=== PATIENT | male | born 1945 | race Caucasian/White ===

== ENCOUNTER 2025-02-06 09:44 | Emergency (ER) | payer MEDICARE, OTHER, SELFPAY ==
[2025-02-06 09:44] VITALS: BMI 22.2
[2025-02-06 09:48] VITALS: BP 165/88
[2025-02-06 10:04] LABS: Hematocrit 43.6 % (39.0-52.0); Hemoglobin 15.5 g/dL (13.0-18.0); Mean Corp Hgb Conc. 35.6 g/dL (33.0-37.0); Mean Corpuscular Volume 96.7 fL (80.0-94.0); Nucleated Red Blood Cells % 0 % (-); Platelet Count 139 10^3/uL (130-400); Red Cell Dist. Width 12.6 % (11.5-14.5)
[2025-02-06 10:26] LABS: Troponin I 0.014 ng/ml
[2025-02-06 10:27] LABS: ALT (SGPT) 28 U/L (0-50); AST (SGOT) 31 U/L (17-59); Albumin 5.0 g/dl (3.5-5.0); Alkaline Phosphatase 66 U/L (38-126); Blood Urea Nitrogen 13 mg/dl (9-20); Calcium 10.0 mg/dl (8.4-10.2); Carbon Dioxide 25 mmol/L (22-30); Chloride 103 mmol/L (98-107); Glucose 106 mg/dl (70-99); Potassium 4.5 mmol/L (3.5-5.1); Sodium 136 mmol/L (135-145); Total Protein 7.7 g/dl (6.3-8.2); eGFR > 60.00
[2025-02-06 15:22] VITALS: BP 153/68
--- NOTE | 2025-02-06 15:56 | ED.GENMED ---
History of Present Illness
General
Chief Complaint: Chest Pain
Time Seen by Provider: 02/06/25 15:30
Nursing documentation reviewed up to this point in time: agreed with
History of Present Illness
History of Present Illness:
80-year-old male presents to the ER with his for evaluation of a multitude of complaints. 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 He states that this
pain has been going on for the last several days. 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 He also feels tingling and burning discomfort up into his neck and face, which he has experienced before of uncertain significance.
He does see pain management and is prescribed tramadol twice daily. He reports that he stopped taking this 5 days ago as he felt that in general it had not been helping any of his discomforts. He denies any cough or cold symptoms. No dyspnea. No
fevers. No abdominal pain. reports that he has not had much of an appetite in the past few days. Patient also reports urinary frequency and urgency along with nocturia, but states that this has been ongoing for the last several months and he
has already spoken to his urologist about it-he is not on any new medications. He denies any recent antibiotic usage. Of note, present at bedside states that she did not know that he had stopped taking his tramadol a few days ago.
Past History
Past History
ED Past Medical History: CAD, GERD, HTN and Psychiatric
Social History
Tobacco: Non-smoker
Alcohol: Occasional
Drug: None
Personal:
Living: with family
Review of Systems
Review of Systems
Allergies reviewed?: Yes
Phy Exam
Physical Exam
Physical Exam:
Patient is awake, alert, appears in no acute distress, head is NCAT, PERRL, EOMI mucous membranes moist, conjunctiva pink, heart regular rate and rhythm without murmurs or ectopy, lungs are clear to auscultation without wheezes rales or rhonchi, no
JVD, abdomen is soft and nontender on palpation, extremities without edema, GCS is 15
Scores
Heart Score for Chest Pain Patients
STEMI patient?: No
History: Slightly or Non-Suspicious
ECG: Nonspecific Repolarization
Age: >/= 65 years
Risk Factors: >/= 3 Risk Factors or History of CAD
Troponin: </= Normal Limit
Heart Score for Chest Pain Patients: 5
Heart Score Risk: 20.3% MACE over next 6 weeks
Course
Orders/Labs/Results
Orders:
Orders
02/06/25 09:46
Electrocardiogram (*1) Urgent
Reason for Study: Chest Pain
EKG- Treatment ONCE
02/06/25 09:55
Complete Blood Count/With Diff Urgent
Comprehensive Metabolic Panel Urgent
Troponin I Urgent
02/06/25 09:58
CR Chest - 2 Views Urgent
Comment:
Reason For Exam: CP
02/06/25 15:39
Tramadol HCl [Ultram] 50 mg PO NOW STA
02/06/25 15:53
Troponin I Urgent
02/06/25 17:33
Urinalysis Reflex To Culture Urgent
Date Specimen was Collected: 02/06/25
Time Specimen was Collected: 17:30
Urine Microscopic Reflex Cult Urgent
Abnormal Lab Results
02/06/25 02/06/25
09:55 17:33
RBC 4.51 L 10^6/uL
(4.70-6.10)
MCV 96.7 H fL
(80.0-94.0)
MCH 34.4 H pg
(27.0-31.0)
Absolute Lymphs (auto) 0.9 L 10^3/uL
(1.2-3.4)
Neutrophils % 76.1 H %
(42.2-75.2)
Lymphocytes % 14.6 L %
(20.5-51.1)
Glucose 106 H mg/dl
(70-99)
Urine Ketones 3+ A
(Negative)
Urine Albumin (Reflex) 2+ A
(Neg - Trace)
02/06/25 09:55
02/06/25 09:55
Vital Signs
Initial and Last Documented VS:
Initial Vital Signs
Temp Pulse Resp BP Pulse Ox
98.2 F 91 16 165/88 98
02/06/25 09:48 02/06/25 09:48 02/06/25 09:48 02/06/25 09:48 02/06/25 09:48
Last Documented Vital Signs
Temp Pulse Resp BP Pulse Ox
98 F 80 12 133/68 96
02/06/25 18:41 02/06/25 18:41 02/06/25 18:41 02/06/25 18:41 02/06/25 18:41
*Radiology
Radiology exam reviewed: preliminary read by ED provider (I independently viewed and interpreted two-view chest x-ray showing no acute process, no infiltrates, normal cardiac silhouette) and radiology read reviewed
*Pulse Oximetry
SaO2: 98
Oxygen Mode of Delivery: Room air
Patient hypoxic: no
*EKG
Interpreted by ED Provider?: Yes (I independent viewed and interpreted twelve-lead EKG showing normal sinus rhythm, rate 84, leftward axis, no ST elevation, this is a nonspecific EKG with T wave flattening in the lateral leads new compared to prior
of 03/17/2021)
*Smash Hand Interpretation
Rate: normal (I independently viewed and interpreted rhythm strip showing normal sinus rhythm, no ectopy)
*Critical Care Note
Total Time (30-74mins, 75-104mins- exclusive of procedures): Not Applicable
Update Note
Update Note:
Will give usual dose of tramadol as I suspect patient is having exacerbation of his chronic pain symptoms due to absence of tramadol. Will also check urinalysis and chest x-ray. Patient and agree with plan at current I discussed with him very
reassuring initial troponin. Awaiting repeat
late entry-right I reviewed with patient and very reassuring remainder of workup including negative troponin, no evidence for UTI. Patient had complete symptomatic resolution after tramadol administered. I discussed with patient need to avoid
abrupt discontinuation of his tramadol in the future and to reach out to his primary pain management physician to discuss further treatment plan. Patient and feel comfortable with plan for discharge and had no questions prior to leaving the
department.
ED Attending Note
-
Portions of this chart may have been created with voice recognition software.� Occasional wrong word or��sound alike� substitutions may have occurred due to the inherent limitations of voice recognition software.
Discharge Plan
Departure
Patient Disposition: Home (Routine Discharge)
Date of Disposition: 02/06/25
Time of Disposition: 18:37
Patient with high blood pressure during this ER visit?: Yes
Discharge Problem:
Acute exacerbation of chronic pain, Chest pain
Instructions: Chest Pain PCP Follow Up
Prescriptions:
No Action
quinapril 10 MG tablet
10 mg PO BID
famotidine 20 MG tablet
20 mg PO BID
lorazepam 0.5 MG tablet
0.5 mg PO BID
tamsulosin 0.4 MG capsule
0.4 mg PO DAILY
pantoprazole 40 MG tablet,delayed release (DR/EC)
40 mg PO DAILY
zolpidem 10 MG tablet
10 mg PO HSPRN PRN (Reason: sleep)
atorvastatin 40 MG tablet
40 mg PO QPM Qty: 30 0RF
isosorbide mononitrate 30 MG tablet extended release 24 hr
30 mg PO DAILY Qty: 60 0RF
clopidogrel 75 MG tablet
75 mg PO DAILY Qty: 30 0RF
aspirin 81 MG tablet,chewable
81 mg PO DAILY 0RF
metoprolol tartrate 25 MG tablet
25 mg PO BID Qty: 60 0RF
Referrals:
Osmel Felipe MD [Family Provider, Family Practice]
Activity Restrictions/Additional Instructions:
Please take your medications as prescribed
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
Return to the ER for any concerns
Interventions
Interventions:
*General Assessment Last Done: 02/06/25 15:30
*Neglect/Abuse Screening Last Done: 02/06/25 09:48
*ED COVID-19 Vaccine History Last Done: 02/06/25 15:30
*ED Influenza Vaccine History Last Done: 02/06/25 15:30
[facility] Fall Risk Assessment Tool Last Done: 02/06/25 09:44
*Risk Screen - Suicide (C-SSRS) Last Done: 02/06/25 09:48
*Nursing Disposition Last Done: 02/06/25 18:41
ED- Cardiac Assessment Last Done: 02/06/25 15:28
Discharge Date and Time
Discharge Date/Time: 02/06/25 18:43
Print Language: ESTONIAN
[2025-02-06 16:00] VITALS: BP 142/63
[2025-02-06] MEDS: ULTRAM 50 MG PO (16:16)
[2025-02-06 16:26] LABS: Troponin I 0.013 ng/ml
[2025-02-06 17:45] LABS: Urine Character Clear (Clear)
[2025-02-06 18:07] LABS: Urine Red Blood Cell 0-2 /HPF (0-2); Urine White Cell 0-2 /HPF (0-5)
[2025-02-06 18:41] VITALS: BP 133/68
== END 2025-02-06 18:43 | disposition home or self-care (01) ==
LOC: EMR 09:44
PROVIDERS: Emergency Medicine; Physician Assistant; EMERGENCY PHYSICIAN Emergency Medicine; FAMILY PHYSICIAN Family Medicine
DX: G89.29 Other chronic pain (principal); R07.9 Chest pain, unspecified; I10 Essential (primary) hypertension; G62.9 Polyneuropathy, unspecified; I25.10 Atherosclerotic heart disease of native coronary artery without angina pectoris
CPT/HCPCS: 99285; 71046; 80053; 81003; 81015; 84484; 85025; 93005